=== PATIENT | male | born 1965 | race African-American/Black ===

== ENCOUNTER 2020-01-25 07:42 | Outpatient (CLI) | payer OTHER, SELFPAY ==
--- NOTE | ~2020-01-25 | MR_ITS ---
EXAMINATION: MR cervical spine wo con EXAM DATE: 01/25/2020 09:00 INDICATION: Cervical radiculopathy. TECHNIQUE: Multi-sequential, multiplanar MR images of the cervical spine were obtained without contra st. Axial T2, axial T2 MERGE sequence. Sagittal T1, T2, T2 fat saturation images also obtained. Th ere is no prior study for comparison. FINDINGS: Mild diffuse cervical disc disease. The vertebral bodies are aligned in the AP dimension. The spinal cord signal intensity and intrinsic morphology is normal. Cervicomedullary junction is nor mal in appearance. There are no suspicious marrow signal abnormalities. Paraspinal soft tissue is unr emarkable. Level by level evaluation: C2-C3: Disc does not extend beyond the endplate margin. Uncovertebral joint arthropathy: Mild left. Facet joint arthropathy: Mild to moderate bilateral. Neural foraminal stenosis: No stenosis. Central canal stenosis: No stenosis. C3-C4: There is a mild diffuse disc bulge. Uncovertebral joint arthropathy: Moderate left, mild to moderate right. Facet joint arthropathy: Moderate bilateral. Neural foraminal stenosis: Moderate to severe left, mild to moderate right. Central canal stenosis: No stenosis. C4-5: There is a mild diffuse disc bulge. Uncovertebral joint arthropathy: Mild to moderate left, mild right. Facet joint arthropathy: Severe left, moderate right. Neural foraminal stenosis: Moderate to severe left, moderate right. Central canal stenosis: Mild. C5-6: There is a mild diffuse disc bulge. Uncovertebral joint arthropathy: Moderate bilateral. Facet joint arthropathy: Severe right, moderate left. Neural foraminal stenosis: Moderate right, mild to moderate left. Central canal stenosis: Mild. C6-7: There is a minimal diffuse disc bulge. Uncovertebral joint arthropathy: Moderate left, mild to moderate right. Facet joint arthropathy: Moderate bilateral. Neural foraminal stenosis: No stenosis. Central canal stenosis: Mild to moderate bilateral. C7-T1: Disc does not extend beyond the endplate margin. Uncovertebral joint arthropathy: Mild to moderate bilateral Facet arthropathy: Moderate left, mild to moderate right. Neural foraminal stenosis: Mild left. Central canal stenosis: No stenosis. IMPRESSION: 1. Significant mid cervical arthropathy causing left C3-4 and 4-5 neural foramen most narrowed on ex am. Reviewed, dictated and finalized at location A. IMPRESSION: 1. Significant mid cervical arthropathy causing left C3-4 and 4-5 neural david en most narrowed on exam.
== END 2020-01-25 07:43 | disposition home or self-care (01) ==
DX: M54.12 Radiculopathy, cervical region (principal); M12.88 Other specific arthropathies, not elsewhere classified, other specified site
CPT/HCPCS: 72141

== ENCOUNTER 2020-12-18 12:31 | Outpatient (CLI) | payer OTHER, SELFPAY ==
--- NOTE | ~2020-12-18 | MR_ITS ---
EXAMINATION: MR lumbar spine wo con EXAM DATE: 12/18/2020 13:36 INDICATION: Low back pain. TECHNIQUE: Multi-sequential, multiplanar MR images of the lumbar spine were obtained without contrast . Sagittal T1, T2, T2 fat saturation images. Axial T2 weighted images. There is no prior study for comparison. FINDINGS: There is mild loss of the L5-S1 disc height. Diffuse lumbar disc desiccation. The vertebral bodies are aligned in the AP dimension. The conus medullaris terminates at the L1 level and has norm al signal intensity and morphology. Level by level evaluation: T12-L1: Disc does not extend beyond the endplate margin. Facet arthropathy: Mild to moderate. Neural foraminal stenosis: No stenosis. Central canal stenosis: No stenosis. L1-L2: Disc does not extend beyond the endplate margin. Facet arthropathy: Mild to moderate. Neural foraminal stenosis: No stenosis. Central canal stenosis: No stenosis. L2-L3: There is a mild diffuse disc bulge. Facet arthropathy: Mild to moderate. Neural foraminal stenosis: Mild right. Central canal stenosis: No stenosis. L3-L4: There is a mild diffuse disc bulge. Facet arthropathy: Moderate . Ligamentum flavum enlargement. Neural foraminal stenosis: Mild left. Central canal stenosis: No stenosis. L4-L5: There is a mild diffuse disc bulge. Facet arthropathy: Moderate . Ligamentum flavum enlargement. Neural foraminal stenosis: Mild to moderate bilateral. Central canal stenosis: No stenosis. L5-S1: There is a mild to moderate diffuse disc bulge. Facet arthropathy: Mild to moderate. Neural foraminal stenosis: Moderate left, mild to moderate right. Central canal stenosis: No stenosis. IMPRESSION: 1. Mild to moderate lumbar spondylosis. Reviewed, dictated and finalized at location A.
== END 2020-12-18 12:32 | disposition home or self-care (01) ==
DX: M54.5 Low back pain (principal); M47.816 Spondylosis without myelopathy or radiculopathy, lumbar region
CPT/HCPCS: 72148

== ENCOUNTER 2024-06-03 12:25 | Emergency (ER) | payer OTHER, SELFPAY ==
--- NOTE | ~2024-06-03 | CT_ITS ---
CT brain wo con Ordering provider: Nicholas Beaulieu MD History: 59 years Male with . AMS . Comparison: None. Technique: CT of the head without contrast. Radiation reduction technique utilized.The dose-length product was 605.33 mGy-cm. FINDINGS: BRAIN PARENCHYMA AND CSF SPACES: No midline shift, mass effect or hemorrhage. The brain parenchyma a nd CSF spaces are otherwise normal. VISUALIZED PARANASAL SINUSES: Right maxillary sinus disease. MASTOIDS: Well aerated. BONES: The bones appear intact. Old fracture in the medial wall of the right orbit is noted. SOFT TISSUES: Visualized nasopharynx is normal. Superficial soft tissues are normal. IMPRESSION: No acute intracranial findings. Reviewed, dictated and finalized at location A. MIXER
[2024-06-03 12:25] VITALS: BP 123/85; PULSE 84; RESP 20; TEMP 36.6; O2SAT 95
[2024-06-03 12:40] VITALS: BP 143/83; PULSE 86; RESP 20; O2SAT 95
[2024-06-03] MEDS: SODIUM CHLORIDE 0.9% IV 1,000 ML 999 ML IV CONT ×2 (12:44→13:52)
[2024-06-03] MEDS: FAMOTIDINE 20 MG/2 ML VIAL 40 MG IV PUSH (12:44)
[2024-06-03] MEDS: dexAMETHasone SOD PHOS INJ 10 MG/ML 1 ML VIAL IV PUSH (12:47)
[2024-06-03] MEDS: EPINEPHrine HCL INJ 1 MG/ML AMPUL 0.5 MG IM (12:50)
[2024-06-03 12:59] LABS: Basophils Percent Auto 0.2 % (0.2-1.2); Eosinophils Absolute Auto 0.2 K/mm3 (0-0.3); Eosinophils Percent Auto 4.1 % (0-4.4); Hematocrit 39.3 % (42.0-52.0); Hemoglobin 13.4 g/dL (14.0-18.0); Immature Granulocyte Absolute 0.02 K/mm3 (0.00-0.031); Immature Granulocyte Percent A 0.4 % (0-0.5); Lymphocytes Absolute Auto 2.01 K/mm3 (0.9-3.2); Mean Corpuscular HGB Conc 34.1 g/dl (32-36); Mean Corpuscular Hemoglobin 29.6 pg (26-34); Mean Corpuscular Volume 86.9 fl (80-100); Mean Platelet Volume 9.9 fl (7.4-10.4); Monocytes Absolute Auto 0.3 K/mm3 (0.1-0.6); Neutrophils Absolute Auto 2.2 K/mm3 (1.3-6.7); Neutrophils Percent Auto 46.3 % (45.5-73.1); Platelet Count Result 238 k/mm3 (150-375); Red Blood Count 4.52 M/mm3 (4.6-6.20); Red Cell Distribution Width 13.2 % (11.5-14.5); White Blood Count 4.7 K/mm3 (4.5-10.0)
[2024-06-03 13:11] LABS: Alanine Aminotransferase 32 U/L (6-50); Albumin Level 3.8 g/dL (3.5-5.1); Alkaline Phosphatase 87 U/L (38-126); Anion Gap 7 mmol/L (4-12); Aspartate Amino Transferase 30 U/L (17-59); Bilirubin,Total 0.8 mg/dL (0.2-1.3); Blood Urea Nitrogen 13 mg/dL (9-20); Calcium 8.4 mg/dL (8.4-10.2); Carbon Dioxide 22 mmol/L (22-30); Chloride 111 mmol/L (98-107); Estimated CRCL calculation 97 ml/min; Estimated Glomerular Filt Rate > 60; Glucose 152 mg/dL (65-110); Potassium 3.2 mmol/L (3.4-5.0); Sodium 140 mmol/L (137-145)
--- NOTE | 2024-06-03 13:27 | ED.GENADULT ---
HPI - General Adult General Chief complaint: Allergic Reaction Stated complaint: allergic reaction Time Seen by Provider: 06/03/24 12:32 History of Present Illness HPI narrative: this is a 5-year-old male presenting for possible allergic reaction. Patient was at breakfast when he had grits with shrimp in it. When he found out that the great his trip in for some Benadryl and sewed up. He then lost consciousness. He is unsure if he struck his head or not. When EMS was called arrived he was hypotensive and he received epinephrine and Benadryl on scene. at this time patient says he has itching in his throat and his ears. He is denying difficulty breathing, nausea vomiting diarrhea or hives. He has had allergic reactions to shrimp in the past where he felt his throat and ears were itching however he did not go to a hospital in the symptoms resolved with p.o. Benadryl Related Data Allergies Allergy/AdvReac Type Severity Reaction Status Date / Time shrimp Allergy Severe Anaphylaxis Verified 06/03/24 16:13 [facility] Past Medical History Medical History Hypertension Exam Narrative: APPEARANCE: No apparent distress. Head: no swelling of the tongue or uvula, no stridor EYES: EOMI, NOSE: Atraumatic NECK: Trachea midline RESPIRATORY: No increased rate of breathing clear to auscultation CARDIOVASCULAR: RRR, ABDOMINAL: Non-distended soft nontender MUSCULOSKELETAl: No obvious deformities NEURO: Alert. Cranial nerves 2-12 grossly intact. Sensation light touch, motor function cerebellar function intact for 4 extremities. Gait exam was normal. SKIN:: Warm, dry. Normal color, no hives PSYCHIATRIC: Normal affect Course Vital Signs Vital signs: Vital Signs Temperature 97.9 F 06/03/24 12:25 Pulse Rate 84 06/03/24 12:25 Respiratory Rate 20 06/03/24 12:25 Blood Pressure 123/85 06/03/24 12:25 Pulse Oximetry 95 06/03/24 12:25 Oxygen Delivery Room Air 06/03/24 12:25 Temperature 97.9 F 06/03/24 12:25 Pulse Rate 109 H 06/03/24 15:30 Respiratory Rate 20 06/03/24 15:30 Blood Pressure 169/96 H 06/03/24 15:30 Pulse Oximetry 100 06/03/24 15:30 Oxygen Delivery Room Air 06/03/24 12:40 Medical Decision Making MDM Narrative Medical decision making narrative: -Course: 59-year-old male presenting after possible anaphylactic reaction from a trim. Received epinephrine from EMS. He was treated with epinephrine, dexamethasone Pepcid and 2 L of fluid here in the emergency department. He did have an episode of confusion where he was speaking about 1 of his sons was a long time ago. Ct head neg and etoh negative. UDS positive for cocaine which the patient says he used 3 ays ago. Confusion could be due to Be He will be discharged in the custody of his family. Provided prescription for EpiPen -DDX includes but is not limited to: anaphylactic shock, ICH, alcohol intoxication -Co-morbidities complicating care: hypertension, allergies shrimp -Independent interpretation of studies: Labs and imaging reviewed CT head negative UDS positive for cocaine -Interventions: 0.5 mg epi, dexamethasone, Pepcid 2 L normal saline -Shared decision making / Disposition: discharge -RX EpiPen Vital Signs Vital Signs: Vital Signs Temperature 97.9 F 06/03/24 12:25 Pulse Rate 84 06/03/24 12:25 Respiratory Rate 20 06/03/24 12:25 Blood Pressure 123/85 06/03/24 12:25 Pulse Oximetry 95 06/03/24 12:25 Oxygen Delivery Room Air 06/03/24 12:25 Temperature 97.9 F 06/03/24 12:25 Pulse Rate 109 H 06/03/24 15:30 Respiratory Rate 20 06/03/24 15:30 Blood Pressure 169/96 H 06/03/24 15:30 Pulse Oximetry 100 06/03/24 15:30 Oxygen Delivery Room Air 06/03/24 12:40 Lab Data 06/03/24 12:52 06/03/24 12:52 Labs: Lab Results 06/03/24 06/03/24 Range/Units 12:52 13:46 WBC 4.7 (4.5-10.0) K/mm3 RBC 4.52 L (4.6-6.20) M/mm3 Hgb 13.4 L (14.0-18.0) g/dL Hct 39.3 L (42.0-52.0) % MCV 86.9 (80-100) fl MCH 29.6 (26-34) pg MCHC 34.1 (32-36) g/dl RDW 13.2 (11.5-14.5) % Plt Count 238 (150-375) k/mm3 MPV 9.9 (7.4-10.4) fl Immature Gran % (Auto) 0.4 (0-0.5) % Neut % (Auto) 46.3 (45.5-73.1) % Lymph % (Auto) 43.0 (18.3-44.2) % Day % (Auto) 6.0 (2.6-8.5) % Eos % (Auto) 4.1 (0-4.4) % Baso % (Auto) 0.2 (0.2-1.2) % Lymph # (Auto) 2.01 (0.9-3.2) K/mm3 Day # (Auto) 0.3 (0.1-0.6) K/mm3 Eos # (Auto) 0.2 (0-0.3) K/mm3 Baso # (Auto) 0.0 (0.0-0.1) K/mm3 Abs Immat Gran (auto) 0.02 (0.00-0.031) K/mm3 Absolute Neuts (auto) 2.2 (1.3-6.7) K/mm3 Absolute Nucleated RBC 0.000 (0.0-0.012) K/mm3 Nucleated RBC % 0.0 (0.0-0.2) % Sodium 140 (137-145) mmol/L Potassium 3.2 L (3.4-5.0) mmol/L Chloride 111 H (98-107) mmol/L Carbon Dioxide 22 (22-30) mmol/L Anion Gap 7 (4-12) mmol/L BUN 13 (9-20) mg/dL Creatinine 1.00 (0.7-1.3) mg/dL Estim Creat Clear Calc 97 ml/min Estimated GFR > 60 (59 - ) Glucose 152 H (65-110) mg/dL Calcium 8.4 (8.4-10.2) mg/dL Total Bilirubin 0.8 (0.2-1.3) mg/dL AST 30 (17-59) U/L ALT 32 (6-50) U/L Alkaline Phosphatase 87 (38-126) U/L Total Protein 7.0 (6.3-8.2) g/dL Albumin 3.8 (3.5-5.1) g/dL Urine Opiates Screen Negative (Negative) Urine Methadone Screen Negative (Negative) Ur Barbiturates Screen Negative (Negative) Ur Phencyclidine Scrn Negative (Negative) Ur Amphetamine Screen Negative (Negative) U Benzodiazepines Scrn Negative (Negative) Urine Cocaine Screen Positive A (Negative) U Cannabinoids Screen Negative (Negative) Ethyl Alcohol < 10 (<10) mg/dL Discharge Plan Discharge Clinical Impression: Anaphylactic shock Patient Disposition: Home, Self-Care Condition: Stable Instructions: Antibiotic Form, Anaphylaxis (ED) Additional Instructions: You were seen in the emergency department for anaphylaxis which is a bad allergic reaction. Please carry an EpiPen with you at all times and avoid shrimp or seafood. If you develop difficulty breathing, swelling or itching in your throat, or dizziness/lightheadedness after being exposed to seafood please inject yourself with the EpiPen and return to emergency department immediately. Patient Language: Danish Prescriptions: New epinephrine 0.3 mg/0.3 mL auto-injector 0.3 mg IM ONCE Qty: 2 0RF Rx Instructions: as a single dose; may repeat once Follow-up/Referrals: UNKNOWN,DOCTOR [Primary Care Provider] -
[2024-06-03 13:30] VITALS: BP 150/94; PULSE 100; RESP 20; O2SAT 100
[2024-06-03 13:50] LABS: Ethanol < 10 mg/dL (<10)
[2024-06-03 14:14] LABS: Amphetamine Screen Urine Negative (Negative); Barbiturate Screen Urine Negative (Negative); Benzodiazepines Screen Urine Negative (Negative); Cannabinoid Screen Urine Negative (Negative); Cocaine Screen Urine Positive (Negative); Methadone Screen Urine Negative (Negative); Opiate Screen Urine Negative (Negative); Phencyclidine Screen Urine Negative (Negative)
[2024-06-03 14:30] VITALS: BP 154/93; PULSE 108; RESP 20; O2SAT 96
[2024-06-03] MEDS: POTASSIUM CHLORIDE 20 MEQ ER TABLET 40 MEQ PO (15:07)
[2024-06-03 15:30] VITALS: BP 169/96; PULSE 109; RESP 20; O2SAT 100
[2024-06-03 17:00] VITALS: BP 167/98; PULSE 100; RESP 18; O2SAT 99
== END 2024-06-03 17:00 | disposition home or self-care (01) ==
PROVIDERS: Emergency Provider Emergency Medicine
DX: T78.02XA Anaphylactic reaction due to shellfish (crustaceans), initial encounter (principal); I10 Essential (primary) hypertension
CPT/HCPCS: 36415; 70450; 80053; 80307; 82077; 85025; 96361; 96372; 96374; 96375; 99284; A9270; J0171; J1100; J7030